=== PATIENT | male | born 1935 | race Caucasian/White ===

== ENCOUNTER → 2018-01-30 | Outpatient (CLI) | payer MEDICARE ==
[~2018-01-30] MED LIST: ATORVASTATIN CA40 MG PO; IOPAMIDOL 370 MG/ML 200 ML INFUS..BTL INJ ONE; SODIUM CHLORIDE 0.9% 50ML 50 ML ONE; Z.0.LISINOPRIL10 MG PO; Z.0.LOVASTATIN20 MG PO; Z.0.METOPROLOL SUCC2 PO; Z.0.PLAVIX75 MG PO; Z.0.ULTRAM50 MG PO
[2018-01-30 08:35] LABS: BLOOD UREA NITROGEN 13 mg/dL (7-26); BUN/CREATININE RATIO 17 (6-25); CREATININE, SERUM 0.78 mg/dL (0.72-1.25); EST GLOMERULAR FILTRATION RATE > 60 ML/MIN (60-)
--- NOTE | 2018-01-30 10:18 | Diagnostic Imaging Report ---
EXAM: CTA Abdomen and Pelvis WITH CONTRAST. DATE: 01/30/2018 7:54 AM INDICATION: COMPARISON: None TECHNIQUE: CT angiogram of the abdomen and pelvis was obtained after the administration of IV contrast. Prospective gating was performed. Images reviewed in the axial, coronal, and sagittal planes. 3D reconstructions performed on off-line workstation. IV Contrast: 100 mL Isovue-370. Total DLP: 344 mGy*cm Est. Eff. Dose DLP x 0.015 x size factor mSv (CTDIvol has been reviewed and is below limits set by [facility]). FINDINGS: VASCULAR: Abdominal Aorta Mesenteric Segment: 29 mm. Abdominal Aorta Just Below Renal Arteries: 23 mm. Mid Infrarenal Abdominal Aorta: 21 mm. 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 [employer] [place] common iliac arteries occluded. The graft aortoiliac reconstruction is widely patent measuring 19 mm in diameter. Graft Abdominal Aortal at Bifurcation: 17 mm. Mesenteric Arteries: Moderate atherosclerotic changes are present at the origin of the celiac trunk and SMA with mild narrowing of the proximal SMA. Single bilateral renal arteries are present with moderate atherosclerotic changes and probable mild right and moderate left proximal narrowing. Iliac arteries: [employer] occluded. Graft reconstructions widely patent with iliofemoral anastomosis. 9 mm bilaterally. Negative internal iliac arteries occluded. Minimal retrograde flow in the distal [place] external iliac arteries. Mild prominence of the left iliofemoral anastomosis 12 mm. Abdomen: Lung Bases: Atelectasis. Solid Organs: Simple cyst left kidney. Otherwise no acute finding solid organs. Upper GI Tract: Gastric decompression limits adequate evaluation. No small bowel obstructive changes. Lymph Nodes: Not enlarged by size criteria. Other: Diastases ventral abdominal wall with superimposed tiny fat-containing hernias. Small and large bowel interposed with no obstruction. Pelvis: Bladder: Unremarkable. Other: Prostate 63 mm transverse diameter. Colon: Moderate colonic stool. Appendix not inflamed. Tiny calcification left pelvis adjacent to sigmoid colon axial image 146 may represent sequela of prior epiploic appendagitis. Bones: Degenerative changes. IMPRESSION: 1. 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 Mild prominence left iliofemoral anastomosis 12 mm. 2. Mild to moderate atherosclerotic changes mesenteric and renal arteries. 3. Prominent prostate. Clinical and laboratory correlation recommended. Signed by: Dr. Lei Hamilton MD on 01/30/2018 10:14 AM
== END ==
LOC: CT 07:36
PROVIDERS: ATTEND Thoracic Surgery (Cardiothoracic Vascular Surgery)
DX: R10.9 Unspecified abdominal pain (principal)
CPT/HCPCS: 36415; 74174; 82565; 84520; Q9967